=== PATIENT | male | born 1990 | race Caucasian/White ===

== ENCOUNTER 2020-07-13 12:45 | Day surgery (SDC) | payer BC ==
[~2020-07-13] VITALS: Ht 180.3 cm; Wt 112.5 kg
--- NOTE | 2020-07-13 16:26 | NUR ---
07/13/20 1626 Mercedes Mixon 1621-PATIENT ARRIVED TO PACU ON 2L NC AWAKE RR EVEN. PATIENT LAYING LEFT LATERAL IVF INFUSING. ABDOMEN SOFT. ENCOURAGED TO TAKE DEEP BREATHS.
--- NOTE | 2020-07-17 09:09 | OR ---
[facility] [address] [place], [place] [address] Signed DATE OF OPERATION: 07/13/2020 SURGEON: Mandeep Simms MD PREOPERATIVE DIAGNOSES: 1. Episodic pain with rectal bleeding. 2. Anoscopy without obvious abnormality. POSTOPERATIVE DIAGNOSES: 1. Minimal proctitis, probably bowel prep related. 2. Minimal internal hemorrhoidal change. PROCEDURE: Total colonoscopy to cecum with biopsy of rectum. ANESTHESIA: Intravenous sedation, fentanyl 150 mcg, Versed 6 mg. INDICATION: This 29-year-old white man has had episodic pain with rectal bleeding. Generally, it is bright. He has family history of colon cancer in a paternal great grandfather, who at age 45 from the disease. Anoscopy was performed in the office showing no obvious abnormality. He is admitted to undergo colonoscopy. He understands the risks of bleeding, infection, and perforation. FINDINGS: The prep was excellent. Complete colonoscopy was undertaken to the cecum without question. He did have some internal hemorrhoidal changes and minimal proctitis, probably bowel prep related. Biopsies were obtained. DESCRIPTION OF PROCEDURE: The patient was brought to the endoscopy suite and placed in lateral decubitus position, given intravenous sedation to the point of slurred speech and nystagmus. Digital rectal examination was normal. An Olympus video colonoscope was passed in the rectum and manipulated throughout the colon ultimately intubating the cecum itself. The ileocecal valve and appendiceal orifice were normal. The scope was withdrawn from that point and examination throughout showed no sign of abnormality, specifically no polyps, diverticular formation, colitis, or cancer. Retroflex view of the rectum showed redundant mucosa of the low rectum consistent with probable hemorrhoidal issue, but there was no sign of bleeding or major hemorrhoidal problem at this time. There was no Electronically Signed By: MANDEEP SIMMS MD 07/17/20 0909 PATIENT NAME: RUSTY WATTS OPERATIVE REPORT DATE OF : 86 REPORT #: [id number] PHYSICIAN: MANDEEP SIMMS MD PCP: SURAJ MORALES MD REPORT IS CONFIDENTIAL AND NOT TO BE RELEASED WITHOUT AUTHORIZATION [facility] [address] [place], [place] [address] Signed sign of fissure. As there was minimal proctitis, probably bowel prep related, biopsies were obtained to assess for colitis as well. The scope was then removed. The patient was taken to the recovery room in good condition. CONCLUDING DIAGNOSIS: Rectal bleeding, not related to malignant or inflammatory bowel disease etiology, likely related to hemorrhoidal disease. PLAN: We will initiate [employer] one scoop p.o. daily. If he should have recurrent bleeding, he will let me know and consideration will be made for empiric hemorrhoidal banding in the office setting. MD DANIELA Ritchie/SHAL /[id number] cc: Suraj Morales MD Copies: SURAJ MORALES MD ~ Electronically Signed By: MANDEEP SIMMS MD 07/17/20 0909 PATIENT NAME: RUSTY WATTS OPERATIVE REPORT DATE OF : [birth year] REPORT #: [id number] PHYSICIAN: MANDEEP SIMMS MD PCP: SURAJ MORALES MD REPORT IS CONFIDENTIAL AND NOT TO BE RELEASED WITHOUT AUTHORIZATION
--- NOTE | 2020-07-17 14:01 | PATH ---
[facility] [address] [place], [place] [address] Signed SPECIMEN(S): A RECTUM SPECIMEN SOURCE: A. RECTUM CLINICAL HISTORY: Mild proctitis, internal hemorrhoids. MICROSCOPIC DESCRIPTION: Histologic sections of all submitted blocks are examined by light microscopy. These findings, together with the gross examination, support the pathologic diagnosis. FINAL PATHOLOGIC DIAGNOSIS: Rectum, biopsy: - Fragments of rectal mucosa with mild mucosal hemorrhage. - Negative for active or chronic proctitis. - Negative for dysplasia or malignancy. COMMENT: Very mild mucosal hemorrhage is seen, which could be secondary to biopsy procedure. No activity, evidence of chronicity, granulomata, ulcerations, viral cytopathic changes or infectious organisms are seen on HE stain. NAL:caw:C2NR GROSS DESCRIPTION: The specimen, labeled "RL, rectum biopsy," is received in formalin and consists of two cevallos soft tissue fragment(s) that measure 0.2 cm in greatest dimension. The specimen is entirely submitted in cassette (A1). JS (under the direct supervision of a pathologist) The Gross Description was prepared using a voice recognition system. The report was reviewed for accuracy; however, sound-alike word errors, addition and/or deletions may occur. If there is any question about this report, please contact Client Services. PERFORMING LABORATORY: The technical component was performed by [facility], [address] [place] [id number] (Customer Experience Analyst: Amparo Patiño MD; CLIA# [id number]). [facility], [address] [facility]. 107, PATIENT NAME: RUSTY WATTS PATHOLOGY DATE OF : 86 REPORT #: [id number] PHYSICIAN: [facility] PCP: SURAJ JACOBSON MD REPORT IS CONFIDENTIAL AND NOT TO BE RELEASED WITHOUT AUTHORIZATION [facility] [address] [facility] [place] [address] Signed [place] [id number] (CLIA# [id number]). Diagnostician: Linsey Strong MD Pathologist Electronically Signed 07/17/2020 Copies: ~ PATIENT NAME: RUSTY WATTS PATHOLOGY DATE OF : [birth year] REPORT #: [id number] PHYSICIAN: [facility] PCP: SURAJ JACOBSON MD REPORT IS CONFIDENTIAL AND NOT TO BE RELEASED WITHOUT AUTHORIZATION
== END 2020-07-13 17:05 | disposition home or self-care (01) ==
LOC: OPS 12:45 → DS 14:00 → OPS 14:00
PROVIDERS: ATTEND Surgery
PROC: 0DBP8ZX Excision of Rectum, Via Natural or Artificial Opening Endoscopic, Diagnostic (ICD-10-PCS; principal; 2020-07-13 14:00)
DX: K64.8 Other hemorrhoids (principal); Z80.0 Family history of malignant neoplasm of digestive organs
CPT/HCPCS: 99153; G0500; J2250; J3010